=== PATIENT | female | born 1960 | race Caucasian/White ===

== ENCOUNTER 2022-05-16 10:01 | Outpatient (CLI) | payer BC | END 2022-05-16 10:02 | disposition home or self-care (01) | LOC: LABBT 10:01 | PROVIDERS: ATTEND Surgery | DX: K44.9 Diaphragmatic hernia without obstruction or gangrene (principal); K21.9 Gastro-esophageal reflux disease without esophagitis; Z20.822 Contact with and (suspected) exposure to COVID-19 | CPT/HCPCS: 87811 ==

== ENCOUNTER 2022-05-19 09:21 | Outpatient (CLI) | payer BC | END 2022-05-19 09:22 | disposition home or self-care (01) | LOC: RAD 09:21 | PROVIDERS: ATTEND Surgery | DX: K21.9 Gastro-esophageal reflux disease without esophagitis (principal); K44.9 Diaphragmatic hernia without obstruction or gangrene | CPT/HCPCS: 74246 ==

== ENCOUNTER 2022-06-29 12:18 | Outpatient (CLI) | payer BC | END 2022-06-29 12:19 | disposition home or self-care (01) | LOC: LABBT 12:18 | PROVIDERS: ATTEND Surgery | DX: Z20.822 Contact with and (suspected) exposure to COVID-19 (principal) | CPT/HCPCS: 87811 ==

== ENCOUNTER 2022-07-05 07:57 | Inpatient (IN) | payer BC ==
[2022-07-05 09:00] LABS: #Eosinphils 0.1 thou/uL (0.0-0.7); #Lymphocytes 1.6 thou/uL (1.20-3.40); #Monocytes 1.4 thou/uL (0.11-0.59); #Neutrophils 11.9 thou/uL (1.40-6.50); %Basophils 0.2 % (0.0-1.0); %Eosinophils 0.8 % (0.0-10.0); %Lymphocytes 10.5 % (21.0-51.0); %Monocytes 9.3 % (0.0-10.0); %Neutrophils 79.1 % (42.0-75.0); Hemoglobin 10.2 g/dL (12.0-16.0); Mean Corpuscular HGB CONC 33.6 g/dL (32.0-36.0); Mean Platelet Volume 8.7 fL (7.4-10.4); Platelet Count 120 thou/uL (130-400); RBC Distribution Width 13.3 % (11.5-14.5); Red Blood Cell (RBC) Count 2.75 mill/uL (4.20-5.40)
[2022-07-05 09:11] LABS: INR-International Normal Ratio 1.3; Prothrombin Time 15.9 sec (12.0-14.7)
[2022-07-05 09:12] LABS: PTT 33.8 sec (22.9-36.1)
[2022-07-05] MEDS ORDERED: Ondansetron PF 4 MG/2 ML Vial ONE (09:12)
[2022-07-05] MEDS ORDERED: Cefepime 2 GM VIAL ONE (09:12)
[2022-07-05 09:22] LABS: ALT (SGPT) 412 U/L (8-55); AST (SGOT) 226 U/L (5-34); Albumin 3.2 g/dL (3.4-4.8); Alkaline Phosphatase 54 U/L (40-110); Anion Gap 12 mmol/L (10-20); BUN (Urea Nitrogen) 13 mg/dL (9.8-20.1); CK (CPK) 315 U/L (29-168); Calc. Creatinine Clearance 0 mL/min (70-130); Calcium 8.4 mg/dL (7.8-10.44); Carbon Dioxide 23 mmol/L (23-31); Chloride 106 mmol/L (98-107); Estimated GFR 94; Globulin 2.2 g/dL (2.4-3.5); Glucose 106 mg/dL (80-115); Lipase 5 U/L (8-78); Potassium 3.6 mmol/L (3.5-5.1); Protein, Total 5.4 g/dL (5.8-8.1); Sodium 137 mmol/L (136-145)
[2022-07-05] MEDS ORDERED: VANCOMYCIN 1.75 GM/500 ML BAG 1.75 GM in Premix Bag 1 BAG IVPB SCH (11:00)
[2022-07-05] MEDS ORDERED: Fentanyl 100 MCG/2 ML VIAL ONE (13:20)
[2022-07-05] MEDS ORDERED: hydrALAZINE 20 MG/ML VIAL SLOW IVP PRN (13:35)
[2022-07-05] MEDS ORDERED: diphenhydrAMINE 50 MG/ML VIAL IVP PRN (13:35)
[2022-07-05] MEDS ORDERED: Dextrose 5% in Water 1,000 ML IV PRN (13:35)
[2022-07-05] MEDS ORDERED: Promethazine HCl 25 MG/ML VIAL IM PRN (13:35)
[2022-07-05] MEDS ORDERED: Dextrose 50% Abboject 50 ML SYRINGE SLOW IVP PRN (13:35)
[2022-07-05 14:00] LABS: SARS-CoV-2 NAA Rapid Test Not Detected (NotDetected)
[2022-07-05] MEDS ORDERED: GASTROGRAFIN 30 ML BOT ONE (14:51)
[2022-07-05] MEDS ORDERED: Iopamidol-370 76% 500 ML 1 ML ONE (14:51)
[2022-07-05] MEDS: D5 1/2 NS w/20 mEq KCL 1,000 ML IV SCH (15:38)
[2022-07-05] MEDS: Morphine 2 MG/ML VIAL SLOW IVP PRN ×2 (15:39→22:23)
[2022-07-05] MEDS: Ondansetron PF 4 MG/2 ML Vial IVP PRN (15:47)
[2022-07-05 16:04] VITALS: BMI 36.1
[2022-07-05] MEDS: HYDROcodone/Acetaminophen 5/325 mg Tablet PO PRN (17:44)
[2022-07-05] MEDS ORDERED: Polyethylene Glycol 3350 17 GM Packet PO PRN (19:24)
[2022-07-05] MEDS ORDERED: Piperacillin/Tazobactam 3.375 GM in Sodium Chloride 0.9% 100 ML IVPB SCH (20:00)
[2022-07-05] MEDS: Simethicone Chewable 80 MG TAB PO PRN (20:23)
[2022-07-05] MEDS: Flecainide 50 MG TAB PO SCH (20:33)
[2022-07-05] MEDS: tiZANidine HCl 4 MG TAB PO SCH (20:35)
[2022-07-05] MEDS: Zolpidem Tartrate 5 MG TAB PO SCH (20:35)
[2022-07-05] MEDS: Acetaminophen 500 MG TAB PO PRN (20:37)
[2022-07-05] MEDS ORDERED: Estradiol 0.1mg/24 Hour Patch (Weekly) TD SCH (21:00)
[2022-07-05] MEDS ORDERED: Cefepime 1 GM in Sodium Chloride 0.9% 100 ML IVPB SCH (21:00)
[2022-07-05] MEDS ORDERED: Vancomycin HCl 1.25 GM in Sodium Chloride 0.9% 250 ML 300 ML IVPB SCH (21:00)
[2022-07-05] MEDS ORDERED: Cefepime 2 GM in Sodium Chloride 0.9% 100 ML IVPB SCH (21:00)
[2022-07-06] MEDS: D5 1/2 NS w/20 mEq KCL 1,000 ML IV SCH ×4 (00:12→12:07)
[2022-07-06] MEDS: Piperacillin/Tazobactam 3.375 GM in Sodium Chloride 0.9% 100 ML IVPB SCH ×3 (00:13→16:03)
[2022-07-06] MEDS: Morphine 2 MG/ML VIAL SLOW IVP PRN ×4 (02:19→20:10)
[2022-07-06] MEDS: Ondansetron PF 4 MG/2 ML Vial IVP PRN ×2 (02:25→14:01)
[2022-07-06] MEDS: HYDROcodone/Acetaminophen 5/325 mg Tablet PO PRN ×3 (06:02→18:59)
[2022-07-06 07:18] LABS: Anion Gap 7 mmol/L (10-20); BUN (Urea Nitrogen) 6 mg/dL (9.8-20.1); Calc. Creatinine Clearance 121 mL/min (70-130); Calcium 7.8 mg/dL (7.8-10.44); Carbon Dioxide 24 mmol/L (23-31); Chloride 107 mmol/L (98-107); Estimated GFR 100; Glucose 127 mg/dL (80-115); Potassium 3.5 mmol/L (3.5-5.1); Sodium 134 mmol/L (136-145)
[2022-07-06 07:43] LABS: #Eosinphils 0.1 thou/uL (0.0-0.7); #Lymphocytes 1.5 thou/uL (1.20-3.40); #Monocytes 1.2 thou/uL (0.11-0.59); #Neutrophils 12.1 thou/uL (1.40-6.50); %Basophils 0.2 % (0.0-1.0); %Eosinophils 0.5 % (0.0-10.0); %Lymphocytes 10.1 % (21.0-51.0); %Monocytes 8.2 % (0.0-10.0); %Neutrophils 81.1 % (42.0-75.0); Mean Corpuscular HGB CONC 32.9 g/dL (32.0-36.0); Mean Corpuscular Hemoglobin 36.2 pg (27.0-31.0); Mean Platelet Volume 8.6 fL (7.4-10.4); Platelet Count 115 thou/uL (130-400); RBC Distribution Width 13.1 % (11.5-14.5); Red Blood Cell (RBC) Count 2.49 mill/uL (4.20-5.40); White Blood Cell (WBC) Count 14.9 thou/uL (4.8-10.8)
[2022-07-06] MEDS: Atenolol 25 MG TAB PO SCH (08:02)
[2022-07-06] MEDS: Flecainide 50 MG TAB PO SCH ×2 (08:03→20:16)
[2022-07-06] MEDS: Pantoprazole 40 MG VIAL IVP SCH (08:04)
[2022-07-06] MEDS: Acetaminophen 500 MG TAB PO PRN ×2 (08:05→16:01)
[2022-07-06] MEDS: Polyethylene Glycol 3350 17 GM Packet PO SCH (08:47)
[2022-07-06 08:50] LABS: Band 1 % (5-11); Lymphocytes 13 % (21-51); MDiff Complete? YES; Monocytes 4 % (0-10); Neutrophil 81 % (42-75); Platelet Morphology Comment Appears Decreased; Polychromasia SLIGHT = 2-3 cells (100X) (0-2/hpf)
[2022-07-06] MEDS ORDERED: Enoxaparin Sodium 40 MG/0.4 ML SYRINGE SC SCH (09:00)
[2022-07-06 13:38] LABS: #Eosinphils 0.1 thou/uL (0.0-0.7); #Lymphocytes 1.6 thou/uL (1.20-3.40); #Monocytes 1.1 thou/uL (0.11-0.59); #Neutrophils 12.4 thou/uL (1.40-6.50); %Basophils 0.2 % (0.0-1.0); %Eosinophils 0.4 % (0.0-10.0); %Lymphocytes 10.3 % (21.0-51.0); %Monocytes 7.5 % (0.0-10.0); %Neutrophils 81.6 % (42.0-75.0); Hemoglobin 9.4 g/dL (12.0-16.0); Mean Corpuscular HGB CONC 32.5 g/dL (32.0-36.0); Mean Corpuscular Hemoglobin 35.6 pg (27.0-31.0); Mean Platelet Volume 8.6 fL (7.4-10.4); Platelet Count 127 thou/uL (130-400); RBC Distribution Width 13.1 % (11.5-14.5); Red Blood Cell (RBC) Count 2.65 mill/uL (4.20-5.40); White Blood Cell (WBC) Count 15.2 thou/uL (4.8-10.8)
[2022-07-06] MEDS: guaiFENesin 200 MG TAB PO PRN (14:01)
[2022-07-06] MEDS: Simethicone Chewable 80 MG TAB PO PRN (20:12)
[2022-07-06] MEDS: Apixaban 2.5 MG TAB PO SCH (20:17)
[2022-07-06] MEDS: Clopidogrel Bisulfate 75 MG TAB PO SCH (20:17)
[2022-07-06] MEDS: tiZANidine HCl 4 MG TAB PO SCH (20:17)
[2022-07-06] MEDS: Zolpidem Tartrate 5 MG TAB PO SCH (20:18)
[2022-07-06] MEDS: Lisinopril 2.5 MG TAB PO SCH (20:33)
[2022-07-06] MEDS ORDERED: Lisinopril 10 MG TAB PO SCH (21:00)
[2022-07-07] MEDS: D5 1/2 NS w/20 mEq KCL 1,000 ML IV SCH ×3 (01:08→13:56)
[2022-07-07] MEDS: Piperacillin/Tazobactam 3.375 GM in Sodium Chloride 0.9% 100 ML IVPB SCH ×3 (01:08→17:28)
[2022-07-07] MEDS: Acetaminophen 500 MG TAB PO PRN ×2 (01:10→23:21)
[2022-07-07] MEDS: guaiFENesin 200 MG TAB PO PRN (01:12)
[2022-07-07] MEDS: Morphine 2 MG/ML VIAL SLOW IVP PRN ×5 (04:02→22:15)
[2022-07-07 06:02] LABS: Anion Gap 11 mmol/L (10-20); BUN (Urea Nitrogen) 6 mg/dL (9.8-20.1); Calc. Creatinine Clearance 117 mL/min (70-130); Calcium 8.2 mg/dL (7.8-10.44); Carbon Dioxide 21 mmol/L (23-31); Chloride 108 mmol/L (98-107); Estimated GFR 99; Glucose 120 mg/dL (80-115); Potassium 3.7 mmol/L (3.5-5.1); Sodium 136 mmol/L (136-145)
[2022-07-07] MEDS: Atenolol 25 MG TAB PO SCH (09:30)
[2022-07-07] MEDS: Flecainide 50 MG TAB PO SCH ×2 (09:30→19:40)
[2022-07-07] MEDS: Apixaban 2.5 MG TAB PO SCH ×2 (09:30→19:40)
[2022-07-07] MEDS: Polyethylene Glycol 3350 17 GM Packet PO SCH (09:31)
[2022-07-07] MEDS: Pantoprazole 40 MG VIAL IVP SCH (09:31)
[2022-07-07] MEDS: HYDROcodone/Acetaminophen 5/325 mg Tablet PO PRN ×3 (09:33→19:28)
[2022-07-07 13:52] LABS: #Basophils 0.1 thou/uL (0.0-0.2); #Eosinphils 0.2 thou/uL (0.0-0.7); #Lymphocytes 1.7 thou/uL (1.20-3.40); #Monocytes 1.1 thou/uL (0.11-0.59); %Basophils 0.4 % (0.0-1.0); %Eosinophils 1.1 % (0.0-10.0); %Lymphocytes 11.9 % (21.0-51.0); %Monocytes 8.1 % (0.0-10.0); %Neutrophils 78.6 % (42.0-75.0); Hemoglobin 9.2 g/dL (12.0-16.0); Mean Corpuscular HGB CONC 33.2 g/dL (32.0-36.0); Mean Corpuscular Hemoglobin 36.3 pg (27.0-31.0); Mean Platelet Volume 8.1 fL (7.4-10.4); Platelet Count 167 thou/uL (130-400); RBC Distribution Width 13.1 % (11.5-14.5); Red Blood Cell (RBC) Count 2.52 mill/uL (4.20-5.40)
[2022-07-07 14:09] LABS: Anion Gap 9 mmol/L (10-20); BUN (Urea Nitrogen) 5 mg/dL (9.8-20.1); Calc. Creatinine Clearance 123 mL/min (70-130); Calcium 8.2 mg/dL (7.8-10.44); Carbon Dioxide 23 mmol/L (23-31); Chloride 107 mmol/L (98-107); Estimated GFR 100; Glucose 105 mg/dL (80-115); Potassium 3.6 mmol/L (3.5-5.1); Sodium 135 mmol/L (136-145)
[2022-07-07] MEDS: Ondansetron PF 4 MG/2 ML Vial IVP PRN (17:28)
[2022-07-07] MEDS: Simethicone Chewable 80 MG TAB PO PRN (17:38)
[2022-07-07] MEDS: Lorazepam 1 MG TAB PO PRN (19:30)
[2022-07-07] MEDS: Lisinopril 2.5 MG TAB PO SCH (19:39)
[2022-07-07] MEDS: tiZANidine HCl 4 MG TAB PO SCH (19:39)
[2022-07-07] MEDS: Zolpidem Tartrate 5 MG TAB PO SCH (19:40)
[2022-07-07] MEDS: Clopidogrel Bisulfate 75 MG TAB PO SCH (19:41)
[2022-07-08] MEDS: HYDROcodone/Acetaminophen 5/325 mg Tablet PO PRN (00:42)
[2022-07-08] MEDS: Piperacillin/Tazobactam 3.375 GM in Sodium Chloride 0.9% 100 ML IVPB SCH ×3 (00:42→18:01)
[2022-07-08] MEDS: Morphine 2 MG/ML VIAL SLOW IVP PRN ×5 (01:40→18:00)
[2022-07-08] MEDS: Lorazepam 1 MG TAB PO PRN ×2 (01:41→18:08)
[2022-07-08] MEDS ORDERED: Diphenoxylate HCl/Atropine Tablet PO PRN (03:11)
[2022-07-08 07:58] LABS: #Eosinphils 0.2 thou/uL (0.0-0.7); #Lymphocytes 1.3 thou/uL (1.20-3.40); #Monocytes 0.9 thou/uL (0.11-0.59); #Neutrophils 9.2 thou/uL (1.40-6.50); %Basophils 0.2 % (0.0-1.0); %Eosinophils 1.7 % (0.0-10.0); %Lymphocytes 11.2 % (21.0-51.0); %Monocytes 7.9 % (0.0-10.0); Hemoglobin 8.6 g/dL (12.0-16.0); Mean Corpuscular HGB CONC 32.2 g/dL (32.0-36.0); Mean Corpuscular Hemoglobin 35.4 pg (27.0-31.0); Mean Platelet Volume 8.6 fL (7.4-10.4); Platelet Count 186 thou/uL (130-400); RBC Distribution Width 13.1 % (11.5-14.5); Red Blood Cell (RBC) Count 2.44 mill/uL (4.20-5.40); White Blood Cell (WBC) Count 11.7 thou/uL (4.8-10.8)
[2022-07-08] MEDS: Pantoprazole 40 MG VIAL IVP SCH (08:22)
[2022-07-08] MEDS: Atenolol 25 MG TAB PO SCH (08:22)
[2022-07-08] MEDS: Flecainide 50 MG TAB PO SCH ×2 (08:22→20:43)
[2022-07-08] MEDS: Polyethylene Glycol 3350 17 GM Packet PO SCH (08:23)
[2022-07-08] MEDS: D5 1/2 NS w/20 mEq KCL 1,000 ML IV SCH (08:24)
[2022-07-08] MEDS: Apixaban 2.5 MG TAB PO SCH ×2 (08:26→20:44)
[2022-07-08] MEDS: Ondansetron PF 4 MG/2 ML Vial IVP PRN ×2 (12:47→19:50)
[2022-07-08 15:25] LABS: Bacteria/HPF None Seen HPF (None Seen); Bilirubin Negative (Negative); Blood, Urine Negative (Negative); Glucose, Urine (Dipstick) Normal (Negative); Ketone, Urine 10 mg/dL (Negative); Leukocyte Negative Leu/uL (Negative); Nitrite Negative (Negative); Protein, Urine (Dipstick) Negative (Neg-Trace); RBC/HPF 0-3 HPF (0-3); Specific Gravity, Urine 1.017 (1.002-1.036); Squamous Epithelial 0-3 HPF (0-3); Urobilinogen Normal mg/dL (Less than 2); WBC/HPF 0-3 HPF (0-3); pH, Urine 5.5 (5.0-9.0)
[2022-07-08 15:26] LABS: Clarity Clear (Clear)
[2022-07-08 15:27] LABS: Urine Culture Reflex No No
[2022-07-08] MEDS: Simethicone Chewable 80 MG TAB PO PRN (18:00)
[2022-07-08] MEDS: Lisinopril 2.5 MG TAB PO SCH (20:41)
[2022-07-08] MEDS: Zolpidem Tartrate 5 MG TAB PO SCH (20:42)
[2022-07-08] MEDS: tiZANidine HCl 4 MG TAB PO SCH (20:42)
[2022-07-08] MEDS: Clopidogrel Bisulfate 75 MG TAB PO SCH (20:42)
[2022-07-09] MEDS ORDERED: Morphine 2 MG/ML VIAL SLOW IVP PRN (01:18)
[2022-07-09] MEDS: Piperacillin/Tazobactam 3.375 GM in Sodium Chloride 0.9% 100 ML IVPB SCH ×3 (01:55→18:15)
[2022-07-09] MEDS: Promethazine HCl 12.5 MG in Sodium Chloride 0.9% 50 ML IVPB PRN (02:04)
[2022-07-09] MEDS: D5 1/2 NS w/20 mEq KCL 1,000 ML IV SCH ×2 (05:35→22:58)
[2022-07-09] MEDS: Acetaminophen 500 MG TAB PO PRN ×2 (06:15→20:07)
[2022-07-09] MEDS: Ondansetron PF 4 MG/2 ML Vial IVP PRN ×3 (06:15→19:56)
[2022-07-09] MEDS: Lorazepam 1 MG TAB PO PRN ×2 (06:24→13:36)
[2022-07-09] MEDS: Atenolol 25 MG TAB PO SCH (08:22)
[2022-07-09] MEDS: Apixaban 2.5 MG TAB PO SCH ×2 (08:22→19:53)
[2022-07-09] MEDS: Flecainide 50 MG TAB PO SCH ×2 (08:22→20:06)
[2022-07-09] MEDS: HYDROcodone/Acetaminophen 5/325 mg Tablet PO PRN (08:23)
[2022-07-09] MEDS: Pantoprazole 40 MG VIAL IVP SCH (08:23)
[2022-07-09] MEDS: Saccharomyces boulardii 250 MG CAP PO SCH (08:23)
[2022-07-09] MEDS: Morphine 2 MG/ML VIAL SLOW IVP PRN ×2 (13:32→19:54)
[2022-07-09 15:35] LABS: Campy jejuni + coli by PCR Negative (Negative); STEC Shiga Toxin 1+2 Negative (Negative); Salmonella spp. by PCR Negative (Negative); Shigella spp + EIEC by PCR Negative (Negative)
[2022-07-09] MEDS: Clopidogrel Bisulfate 75 MG TAB PO SCH (19:53)
[2022-07-09] MEDS: Simethicone Chewable 80 MG TAB PO PRN (19:54)
[2022-07-09] MEDS: Lisinopril 2.5 MG TAB PO SCH (19:56)
[2022-07-09] MEDS: tiZANidine HCl 4 MG TAB PO SCH (20:07)
[2022-07-09] MEDS: Zolpidem Tartrate 5 MG TAB PO SCH (20:08)
[2022-07-10] MEDS: Piperacillin/Tazobactam 3.375 GM in Sodium Chloride 0.9% 100 ML IVPB SCH ×3 (00:19→17:51)
[2022-07-10] MEDS: HYDROcodone/Acetaminophen 5/325 mg Tablet PO PRN ×4 (02:11→20:51)
[2022-07-10] MEDS: Lorazepam 1 MG TAB PO PRN ×2 (02:12→16:08)
[2022-07-10] MEDS: Flecainide 50 MG TAB PO SCH ×2 (08:04→20:46)
[2022-07-10] MEDS: Saccharomyces boulardii 250 MG CAP PO SCH (08:04)
[2022-07-10] MEDS: Apixaban 2.5 MG TAB PO SCH ×2 (08:05→20:45)
[2022-07-10] MEDS: Atenolol 25 MG TAB PO SCH (08:05)
[2022-07-10] MEDS: Pantoprazole 40 MG VIAL IVP SCH (08:06)
[2022-07-10] MEDS: Ondansetron PF 4 MG/2 ML Vial IVP PRN ×2 (08:28→20:52)
[2022-07-10] MEDS: Simethicone Chewable 80 MG TAB PO PRN ×2 (13:37→20:44)
[2022-07-10] MEDS: Promethazine HCl 12.5 MG in Sodium Chloride 0.9% 50 ML IVPB PRN (13:37)
[2022-07-10] MEDS: Clopidogrel Bisulfate 75 MG TAB PO SCH (20:46)
[2022-07-10] MEDS: tiZANidine HCl 4 MG TAB PO SCH (20:48)
[2022-07-10] MEDS: Zolpidem Tartrate 5 MG TAB PO SCH (20:49)
[2022-07-10] MEDS: Lisinopril 2.5 MG TAB PO SCH (20:50)
[2022-07-10] MEDS: D5 1/2 NS w/20 mEq KCL 1,000 ML IV SCH (21:05)
[2022-07-11] MEDS: Piperacillin/Tazobactam 3.375 GM in Sodium Chloride 0.9% 100 ML IVPB SCH ×2 (01:56→08:24)
[2022-07-11] MEDS: HYDROcodone/Acetaminophen 5/325 mg Tablet PO PRN ×3 (02:13→15:19)
[2022-07-11] MEDS: Promethazine HCl 12.5 MG in Sodium Chloride 0.9% 50 ML IVPB PRN ×2 (03:35→12:46)
[2022-07-11] MEDS: Simethicone Chewable 80 MG TAB PO PRN ×2 (04:02→11:03)
[2022-07-11] MEDS: Atenolol 25 MG TAB PO SCH (08:25)
[2022-07-11] MEDS: Flecainide 50 MG TAB PO SCH (08:25)
[2022-07-11] MEDS: Apixaban 2.5 MG TAB PO SCH (08:25)
[2022-07-11] MEDS: Saccharomyces boulardii 250 MG CAP PO SCH (08:25)
[2022-07-11] MEDS: Pantoprazole 40 MG VIAL IVP SCH (08:25)
[2022-07-11] MEDS: Ondansetron PF 4 MG/2 ML Vial IVP PRN (11:03)
[2022-07-11 15:24] VITALS: BP 136/78; TEMP 99.8
== END 2022-07-11 16:23 | disposition home or self-care (01) | DRG 194 ==
LOC: ERS 07:57 → T4-A 14:32 → OBSVTOIN 07-07 16:46
PROVIDERS: ADMIT Surgery; ATTEND Surgery
DX: J18.9 Pneumonia, unspecified organism (principal); F11.20 Opioid dependence, uncomplicated; I50.32 Chronic diastolic (congestive) heart failure; Z20.822 Contact with and (suspected) exposure to COVID-19; K21.9 Gastro-esophageal reflux disease without esophagitis; I25.10 Atherosclerotic heart disease of native coronary artery without angina pectoris; I48.91 Unspecified atrial fibrillation; D64.9 Anemia, unspecified; E78.5 Hyperlipidemia, unspecified; Y95 Nosocomial condition; K59.00 Constipation, unspecified; I11.0 Hypertensive heart disease with heart failure; F41.9 Anxiety disorder, unspecified; Z95.1 Presence of aortocoronary bypass graft; Z95.5 Presence of coronary angioplasty implant and graft; Z98.890 Other specified postprocedural states; Z88.8 Allergy status to other drugs, medicaments and biological substances; Z90.49 Acquired absence of other specified parts of digestive tract; Z88.1 Allergy status to other antibiotic agents
CPT/HCPCS: 36415; 71045; 71275; 74177; 80048; 80053; 81001; 82550; 83605; 83630; 83690; 84484; 85025; 85610; 85730; 87040; 87324; 87449; 87505; 88304; 93005; 94640; 94760; 96361; 96365; 96366; 96367; 96372; 96375; 96376; C1776; C9113; G0378; J0690; J0692; J1100; J1170; J1200; J1650; J1885; J2270; J2370; J2405; J2543; J2550; J2704; J3010; J3370; J3480; J3490; J7620; Q9963; Q9967; U0002

== ENCOUNTER 2022-09-08 07:29 | Outpatient (CLI) | payer BC | END 2022-09-08 07:30 | disposition home or self-care (01) | LOC: RAD 07:29 | PROVIDERS: ATTEND Surgery | DX: K44.9 Diaphragmatic hernia without obstruction or gangrene (principal); K22.4 Dyskinesia of esophagus | CPT/HCPCS: 74246 ==

== ENCOUNTER 2024-03-23 07:51 | Observation (INO) | payer MEDICARE, OTHER ==
[2024-03-23 09:04] LABS: #Basophils 0.04 10x3/uL (0.0-0.2); %Basophils 0.7 % (0.0-1.0); %Eosinophils 2.2 % (0.0-10.0); %Lymphocytes 35.5 % (21.0-51.0); %Monocytes 10.1 % (0.0-10.0); %Neutrophils 51.1 % (42.0-75.0); Hematocrit 31.7 % (36.0-47.0); Hemoglobin 10.8 g/dL (12.0-16.0); Mean Corpuscular HGB CONC 34.1 g/dL (32.0-36.0); Mean Corpuscular Hemoglobin 37.5 pg (27.0-31.0); Mean Corpuscular Volume 110.1 fL (78.0-98.0); Mean Platelet Volume 9.3 fL (7.4-10.4); Platelet Count 213 10x3/uL (130-400); Red Blood Cell (RBC) Count 2.88 mill/uL (4.20-5.40)
[2024-03-23 09:16] LABS: Troponin I Less than 0.010 ng/mL (< 0.028)
[2024-03-23] MEDS ORDERED: Aspirin Chewable 81 MG TAB ONE (09:24)
[2024-03-23 09:25] LABS: ALT (SGPT) 32 U/L (8-55); AST (SGOT) 20 U/L (5-34); Albumin 3.6 g/dL (3.4-4.8); Alkaline Phosphatase 53 U/L (40-110); Anion Gap 12 mmol/L (10-20); BUN (Urea Nitrogen) 20 mg/dL (9.8-20.1); Bilirubin, Total 0.3 mg/dL (0.2-1.2); Calc. Creatinine Clearance 0 mL/min (70-130); Calcium 9.2 mg/dL (7.8-10.44); Carbon Dioxide 25 mmol/L (23-31); Chloride 108 mmol/L (98-107); Estimated GFR 87; Globulin 2.4 g/dL (2.4-3.5); Glucose 115 mg/dL (80-115); Potassium 4.2 mmol/L (3.5-5.1); Sodium 141 mmol/L (136-145)
[2024-03-23 09:44] LABS: Anisocytosis SLIGHT = 6-15 cells HPF (0-5); Macrocytosis SLIGHT = 6-15 cells HPF (0-5); Platelet Adequacy Comment Platelets Normal
[2024-03-23] MEDS ORDERED: Ondansetron PF 4 MG/2 ML Vial ONE (10:48)
[2024-03-23] MEDS ORDERED: fentaNYL 50 mcg/mL 1 mL Vial ONE (10:48)
[2024-03-23] MEDS ORDERED: Polyethylene Glycol 3350 17 GM Packet PO PRN (11:05)
[2024-03-23] MEDS ORDERED: Ondansetron PF 4 MG/2 ML Vial IVP PRN (11:14)
[2024-03-23] MEDS ORDERED: Acetaminophen 325 MG TAB PO PRN (11:14)
[2024-03-23] MEDS ORDERED: Ondansetron ODT 4 MG TAB PO PRN (11:14)
[2024-03-23 12:12] LABS: Troponin I Less than 0.010 ng/mL (< 0.028)
[2024-03-23 13:06] VITALS: BMI 32.0
[2024-03-23] MEDS: Lorazepam 0.5 MG TAB PO PRN (14:32)
[2024-03-23] MEDS: Nitroglycerin 0.4 MG TAB (25 Tab Bottle) SL PRN (15:44)
[2024-03-23] MEDS: Carvedilol 3.125 MG TAB PO SCH (17:52)
[2024-03-23] MEDS: Sodium Chloride 0.9% 1,000 ML IV SCH (18:48)
[2024-03-23 19:19] LABS: Troponin I Less than 0.010 ng/mL (< 0.028)
[2024-03-23] MEDS: Sacubitril 24MG/Valsartan 26 MG TAB PO SCH (20:27)
[2024-03-23] MEDS: Ranolazine ER 500 MG TAB PO SCH (20:28)
[2024-03-23] MEDS: Pantoprazole DR 40 MG TAB PO SCH (20:28)
[2024-03-23] MEDS: Zolpidem Tartrate 5 MG TAB PO SCH (21:51)
[2024-03-23] MEDS: tiZANidine HCl 4 MG TAB PO PRN (22:56)
[2024-03-24] MEDS: Empagliflozin 10 MG TAB PO SCH (05:04)
[2024-03-24] MEDS ORDERED: Communication Order-Pharmacy FS SCH (06:00)
[2024-03-24] MEDS: Magnesium Oxide 400 MG TAB PO SCH (06:09)
[2024-03-24] MEDS ORDERED: Adenosine 6 mg (2 mL) VIAL ONE (07:01)
[2024-03-24] MEDS ORDERED: Heparin 10,000 UNITS/ 10 ML VIAL ONE (07:01)
[2024-03-24] MEDS ORDERED: Nitroglycerin 50 MG/250 ML BOT 0 ML ONE (07:02)
[2024-03-24] MEDS ORDERED: Midazolam HCl 2 mg/2 ml Vial ONE (07:55)
[2024-03-24] MEDS ORDERED: fentaNYL 50 mcg/mL 1 mL Vial ONE (07:55)
[2024-03-24] MEDS ORDERED: Nitroglycerin 0.4 MG TAB (25 Tab Bottle) ONE (09:57)
[2024-03-24] MEDS ORDERED: Acetaminophen 325 MG TAB ONE (10:37)
[2024-03-24] MEDS: Bumetanide 1 MG TAB PO SCH (13:47)
[2024-03-24] MEDS: Folic Acid 1 MG TAB PO SCH (13:48)
[2024-03-24] MEDS: Amiodarone 200 MG TAB PO SCH (13:48)
[2024-03-24] MEDS: Cyanocobalamin (Vitamin B-12) 1,000 MCG TAB PO SCH (13:48)
[2024-03-24] MEDS: Sodium Chloride 0.9% 1,000 ML IV SCH (13:48)
[2024-03-24 14:08] LABS: #Basophils 0.04 10x3/uL (0.0-0.2); %Basophils 0.6 % (0.0-1.0); %Eosinophils 1.8 % (0.0-10.0); %Lymphocytes 25.4 % (21.0-51.0); %Monocytes 8.9 % (0.0-10.0); %Neutrophils 63.1 % (42.0-75.0); Hematocrit 36.1 % (36.0-47.0); Hemoglobin 11.3 g/dL (12.0-16.0); Mean Corpuscular HGB CONC 31.3 g/dL (32.0-36.0); Mean Corpuscular Hemoglobin 37.7 pg (27.0-31.0); Mean Corpuscular Volume 120.3 fL (78.0-98.0); Mean Platelet Volume 9.4 fL (7.4-10.4); Platelet Count 221 10x3/uL (130-400); RBC Distribution Width 12.4 % (11.5-14.5)
[2024-03-24] MEDS: ALPRAZolam 0.25 MG TAB PO PRN (14:15)
[2024-03-24 14:26] LABS: Anion Gap 12 mmol/L (10-20); BUN (Urea Nitrogen) 12 mg/dL (9.8-20.1); Calc. Creatinine Clearance 113 mL/min (70-130); Calcium 8.5 mg/dL (7.8-10.44); Carbon Dioxide 20 mmol/L (23-31); Cardiac Risk 4.5 (Less than 4.5); Chloride 110 mmol/L (98-107); Cholesterol 204 mg/dl (< 200 Desired); Estimated GFR 99; Glucose 115 mg/dL (80-115); HDL Cholesterol 45 mg/dL (>60 Neg Risk); LDL Cholesterol, Calculated 140 mg/dL; Sodium 138 mmol/L (136-145); Triglycerides 94 mg/dL (Less than 150)
[2024-03-24] MEDS ORDERED: Iopamidol 370 76% 100 ML VIAL ONE (14:30)
[2024-03-24 14:36] LABS: Macrocytosis SLIGHT = 6-15 cells HPF (0-5); Ovalocytes SLIGHT = 2-5 cells HPF (0-1); Platelet Adequacy Comment Platelets Normal; Polychromasia SLIGHT = 2-3 cells HPF (0-2)
[2024-03-24 16:21] VITALS: BP 167/80; TEMP 97.8
[2024-03-24] MEDS ORDERED: Zolpidem Tartrate 5 MG TAB PO SCH (21:00)
[2024-03-25] MEDS ORDERED: Clopidogrel Bisulfate 75 MG TAB PO SCH (09:00)
[2024-03-25] MEDS ORDERED: Aspirin Chewable 81 MG TAB PO SCH (09:00)
== END 2024-03-24 17:52 | disposition home or self-care (01) ==
LOC: ERS 07:51 → ERHOLD 10:35 → 2SW 13:02
PROVIDERS: ADMIT Student in an Organized Health Care Education/Training Program; ATTEND Internal Medicine
PROC: 4A023N7 Measurement of Cardiac Sampling and Pressure, Left Heart, Percutaneous Approach (ICD-10-PCS; principal; 2024-03-23)
PROC: B205YZZ Plain Radiography of Left Heart using Other Contrast (ICD-10-PCS; 2024-03-23)
DX: R07.9 Chest pain, unspecified (principal); I25.10 Atherosclerotic heart disease of native coronary artery without angina pectoris; I48.91 Unspecified atrial fibrillation; I11.0 Hypertensive heart disease with heart failure; I50.20 Unspecified systolic (congestive) heart failure; E78.5 Hyperlipidemia, unspecified; D64.9 Anemia, unspecified; K44.9 Diaphragmatic hernia without obstruction or gangrene; F41.9 Anxiety disorder, unspecified; Z95.5 Presence of coronary angioplasty implant and graft; Z95.1 Presence of aortocoronary bypass graft; Z88.8 Allergy status to other drugs, medicaments and biological substances; Z88.1 Allergy status to other antibiotic agents; Z90.49 Acquired absence of other specified parts of digestive tract; Z90.89 Acquired absence of other organs; Z90.710 Acquired absence of both cervix and uterus; Z88.2 Allergy status to sulfonamides; Z79.51 Long term (current) use of inhaled steroids; Z79.899 Other long term (current) drug therapy; Z79.82 Long term (current) use of aspirin
CPT/HCPCS: 71045; 80048; 80053; 80061; 83735; 83880; 84484 ×2; 85025 ×2; 85347 ×2; 93005 ×2; 93459; 94760; 96374; 96375; 99285; C1769 ×3; C1887; C1894 ×2; G0378 ×3; J1644; J2250; J2405; J3010 ×2; J7050 ×2; 36415; 36416; 93799; 99152; 99153; J0153

== ENCOUNTER 2024-07-09 13:54 | Observation (INO) | payer MEDICARE, OTHER ==
[2024-07-09 15:22] LABS: ALT (SGPT) 25 U/L (8-55); AST (SGOT) 19 U/L (5-34); Albumin 3.4 g/dL (3.4-4.8); Alkaline Phosphatase 54 U/L (40-110); Anion Gap 12 mmol/L (10-20); BUN (Urea Nitrogen) 17 mg/dL (9.8-20.1); Bilirubin, Total 0.3 mg/dL (0.2-1.2); Calc. Creatinine Clearance 0 mL/min (70-130); Carbon Dioxide 23 mmol/L (23-31); Chloride 108 mmol/L (98-107); Estimated GFR 96; Globulin 3.1 g/dL (2.4-3.5); Glucose 81 mg/dL (80-115); Lipase 7 U/L (8-78); Potassium 4.6 mmol/L (3.5-5.1); Protein, Total 6.5 g/dL (5.8-8.1); Sodium 138 mmol/L (136-145)
[2024-07-09 15:23] LABS: #Basophils 0.07 10x3/uL (0.0-0.2); %Basophils 0.8 % (0.0-1.0); %Eosinophils 4.5 % (0.0-10.0); %Lymphocytes 25.4 % (21.0-51.0); %Monocytes 10.2 % (0.0-10.0); %Neutrophils 58.6 % (42.0-75.0); Hematocrit 40.2 % (36.0-47.0); Hemoglobin 12.9 g/dL (12.0-16.0); Mean Corpuscular HGB CONC 32.1 g/dL (32.0-36.0); Mean Corpuscular Hemoglobin 37.8 pg (27.0-31.0); Mean Corpuscular Volume 117.9 fL (78.0-98.0); Mean Platelet Volume 9.6 fL (7.4-10.4); Platelet Count 248 10x3/uL (130-400); RBC Distribution Width 13.1 % (11.5-14.5); Red Blood Cell (RBC) Count 3.41 mill/uL (4.20-5.40)
[2024-07-09 15:28] LABS: Troponin I Less than 0.010 ng/mL (< 0.028)
[2024-07-09 15:46] LABS: Macrocytosis SLIGHT = 6-15 cells HPF (0-5); Platelet Adequacy Comment Platelets Normal; Polychromasia SLIGHT = 2-3 cells HPF (0-2); Tear Drops SLIGHT = 2-5 cells HPF (0-1)
[2024-07-09] MEDS ORDERED: Nitroglycerin 0.4 MG TAB 1 EACH ONE (16:17)
[2024-07-09] MEDS ORDERED: Metoclopramide HCl 10 MG TAB ONE (16:17)
[2024-07-09] MEDS ORDERED: Acetaminophen 325 MG TAB PO PRN (16:51)
[2024-07-09] MEDS ORDERED: Ondansetron ODT 4 MG TAB PO PRN (16:51)
[2024-07-09 18:06] LABS: Cardiac Risk 4.9 (Less than 4.5); Cholesterol 222 mg/dl (< 200 Desired); HDL Cholesterol 45 mg/dL (>60 Neg Risk); LDL Cholesterol, Calculated 150 mg/dL; Magnesium 2.2 mg/dL (1.6-2.6); Triglycerides 135 mg/dL (Less than 150)
[2024-07-09 18:08] LABS: Troponin I Less than 0.010 ng/mL (< 0.028)
[2024-07-09] MEDS ORDERED: Lorazepam 1 MG TAB ONE (18:14)
[2024-07-09] MEDS: Nitroglycerin 0.4 MG TAB (25 Tab Bottle) SL PRN (18:17)
[2024-07-09] MEDS: Lorazepam 1 MG TAB PO SCH (18:17)
[2024-07-09 18:55] VITALS: BMI 29.8
[2024-07-09] MEDS: Famotidine 20 MG TAB PO SCH (21:39)
[2024-07-09] MEDS: Zolpidem Tartrate 5 MG TAB PO SCH (21:39)
[2024-07-09 21:47] LABS: Troponin I Less than 0.010 ng/mL (< 0.028)
[2024-07-10] MEDS: Lorazepam 0.5 MG TAB PO PRN (02:06)
[2024-07-10 05:15] LABS: #Basophils 0.06 10x3/uL (0.0-0.2); %Basophils 0.8 % (0.0-1.0); %Eosinophils 4.4 % (0.0-10.0); %Lymphocytes 29.9 % (21.0-51.0); %Monocytes 12.2 % (0.0-10.0); %Neutrophils 52.3 % (42.0-75.0); Hematocrit 36.2 % (36.0-47.0); Hemoglobin 11.9 g/dL (12.0-16.0); Mean Corpuscular HGB CONC 32.9 g/dL (32.0-36.0); Mean Corpuscular Hemoglobin 37.8 pg (27.0-31.0); Mean Corpuscular Volume 114.9 fL (78.0-98.0); Mean Platelet Volume 9.7 fL (7.4-10.4); Platelet Count 245 10x3/uL (130-400); RBC Distribution Width 12.9 % (11.5-14.5); Red Blood Cell (RBC) Count 3.15 mill/uL (4.20-5.40)
[2024-07-10 05:43] LABS: Macrocytosis SLIGHT = 6-15 cells HPF (0-5); Platelet Adequacy Comment Platelets Normal
[2024-07-10] MEDS ORDERED: Polyethylene Glycol 3350 17 GM Packet PO PRN (08:24)
[2024-07-10] MEDS ORDERED: Non-Formulary Item 1 EACH (Tizanidine Hcl [Zanaflex] 4 MG Capsule) PO PRN (08:24)
[2024-07-10] MEDS ORDERED: Non-Formulary Item 1 EACH (Fluticasone Propionate [Flonase Allergy Relief] 9.9 ML Bottle) EA NARE PRN (08:24)
[2024-07-10] MEDS ORDERED: Non-Formulary Item 1 EACH (Lidocaine 5% Patch [Lidoderm 5% Patch] 1 PATCH Patch) TD PRN (08:24)
[2024-07-10] MEDS ORDERED: Albuterol 200 PUFF (6.7GM INHALER) INH PRN (08:24)
[2024-07-10] MEDS ORDERED: BEMPEDOIC ACID 180 MG PO PRN (08:24)
[2024-07-10] MEDS ORDERED: Simethicone Chewable 80 MG TAB PO PRN (08:24)
[2024-07-10] MEDS ORDERED: Bempedoic Acid [Nexletol] 180 MG Tablet PO PRN (08:33)
[2024-07-10] MEDS ORDERED: Fluticasone Propionate Nasal Spray 16 gm Bottle NASAL PRN (08:34)
[2024-07-10] MEDS ORDERED: Lidocaine 4% Patch TP PRN (08:37)
[2024-07-10] MEDS ORDERED: Non-Formulary Item 1 EACH (Fluticasone/Umeclidin/Vilanter [Trelegy Ellipta 200-62.5-25] 1 INH SCH (09:00)
[2024-07-10] MEDS ORDERED: Bumetanide 1 MG TAB PO SCH (09:00)
[2024-07-10] MEDS ORDERED: Aspirin Chewable 81 MG TAB PO SCH (09:00)
[2024-07-10] MEDS ORDERED: Ranolazine ER 500 MG TAB PO SCH (09:00)
[2024-07-10] MEDS ORDERED: Non-Formulary Item 1 EACH (Valacyclovir Hcl [Valacyclovir] 1,000 MG Tablet) PO SCH (09:00)
[2024-07-10] MEDS ORDERED: Iopamidol 370 76% 100 ML VIAL ONE (09:29)
[2024-07-10] MEDS: valACYclovir 500 MG TAB PO SCH (10:08)
[2024-07-10] MEDS: Ketorolac Tromethamine 30 MG (1 mL) VIAL IVP PRN (10:09)
[2024-07-10] MEDS: Sacubitril 24MG/Valsartan 26 MG TAB PO SCH (10:10)
[2024-07-10] MEDS: Bumetanide 1 MG TAB PO SCH (10:11)
[2024-07-10] MEDS: Ranolazine ER 500 MG TAB PO SCH (10:12)
[2024-07-10] MEDS: Lorazepam 1 MG TAB PO PRN (10:12)
[2024-07-10] MEDS: Empagliflozin 10 MG TAB PO SCH (10:13)
[2024-07-10] MEDS: Pantoprazole DR 40 MG TAB PO SCH (10:13)
[2024-07-10] MEDS: Folic Acid 1 MG TAB PO SCH (10:13)
[2024-07-10] MEDS: Enoxaparin 40 MG (0.4 mL) SYRINGE SC SCH (10:13)
[2024-07-10] MEDS: Ipratropium/Albuterol 3 ML NEB NEB SCH (13:46)
[2024-07-10] MEDS: Cyanocobalamin 1000 MCG/ML VIAL SC SCH (13:48)
[2024-07-10] MEDS: Estradiol 0.01% Vaginal Cream 42.5 gm Tube VAG SCH (13:51)
[2024-07-10] MEDS: ALPRAZolam 0.25 MG TAB PO PRN (13:56)
[2024-07-10] MEDS: Mometasone 100 MCG HFA INHALER (RT USE) INH SCH (19:33)
[2024-07-10] MEDS: Sertraline 100 MG TAB PO SCH (20:58)
[2024-07-10] MEDS: Amiodarone 200 MG TAB PO SCH (21:00)
[2024-07-10] MEDS: Aspirin 81 mg Enteric Coated Tablet PO SCH (21:00)
[2024-07-10] MEDS: Zolpidem Tartrate 5 MG TAB PO SCH (21:00)
[2024-07-10] MEDS: tiZANidine HCl 4 MG TAB PO PRN (21:00)
[2024-07-10] MEDS: Amitriptyline HCl 25 MG TAB PO SCH (21:01)
[2024-07-10] MEDS: Transdermal Patch Removal TOP SCH (21:01)
[2024-07-11] MEDS ORDERED: tiZANidine HCl 4 MG TAB PO PRN (03:56)
[2024-07-11] MEDS: tiZANidine HCl 4 MG TAB PO SCH (04:45)
[2024-07-11] MEDS ORDERED: Estradiol 0.01% Vaginal Cream 42.5 gm Tube VAG SCH (09:00)
[2024-07-11] MEDS: Ketorolac Tromethamine 30 MG (1 mL) VIAL IVP SCH (10:00)
[2024-07-11 12:20] VITALS: BP 110/53; TEMP 97.8
== END 2024-07-11 12:20 | disposition home or self-care (01) ==
LOC: ERS 13:54 → ERHOLD 16:21 → 2SE 20:43
PROVIDERS: ADMIT Internal Medicine; ATTEND Internal Medicine
DX: R07.9 Chest pain, unspecified (principal); I11.0 Hypertensive heart disease with heart failure; I25.10 Atherosclerotic heart disease of native coronary artery without angina pectoris; I50.40 Unspecified combined systolic (congestive) and diastolic (congestive) heart failure; I48.91 Unspecified atrial fibrillation; F41.9 Anxiety disorder, unspecified; D64.9 Anemia, unspecified; K44.9 Diaphragmatic hernia without obstruction or gangrene; R00.2 Palpitations; E78.5 Hyperlipidemia, unspecified; Z95.1 Presence of aortocoronary bypass graft; Z90.710 Acquired absence of both cervix and uterus; Z90.49 Acquired absence of other specified parts of digestive tract; Z98.890 Other specified postprocedural states; Z95.5 Presence of coronary angioplasty implant and graft; Z79.899 Other long term (current) drug therapy; Z90.89 Acquired absence of other organs; Z94.9 Transplanted organ and tissue status, unspecified; Z88.8 Allergy status to other drugs, medicaments and biological substances; Z88.2 Allergy status to sulfonamides
CPT/HCPCS: 71045; 71275; 80053; 80061; 83690; 83735; 83880; 84484 ×2; 85025 ×2; 93005 ×2; 94760; 96372; 96374; 96376; 99285; G0378 ×4; J1885 ×2; J3420; Q9967; 36415; 93010

== ENCOUNTER 2024-07-18 05:55 | Day surgery (SDC) | payer MEDICARE, OTHER ==
[2024-07-11 13:41] VITALS: BMI 29.3
[2024-07-18] MEDS ORDERED: Bupivacaine PF 0.5% 30 ML VIAL ONE (06:33)
[2024-07-18] MEDS ORDERED: Thrombin 5000 UNITS/5 ML VIAL ONE (06:33)
[2024-07-18] MEDS ORDERED: EPINEPHrine 1 MG/ML VIAL ONE (06:33)
[2024-07-18] MEDS ORDERED: Famotidine/PF 20 mg/2ml Vial ONE (06:37)
[2024-07-18] MEDS ORDERED: CEFAZOLIN 2 GM VIAL ONE (06:43)
[2024-07-18] MEDS ORDERED: Midazolam HCl 2 mg/2 ml Vial ONE (06:51)
[2024-07-18] MEDS ORDERED: Droperidol 5 MG/2 ML VIAL ONE (06:54)
[2024-07-18] MEDS ORDERED: Norepinephrine 4 MG/4 ML VIAL ONE (07:07)
[2024-07-18] MEDS ORDERED: Lidocaine 2% PF 5 ML VIAL ONE (07:12)
[2024-07-18] MEDS ORDERED: PROPOFOL 20 ML ONE (07:12)
[2024-07-18] MEDS ORDERED: SUCCINYLCHOLINE/SOD CL,ISO/PF 200 MG/10 ML SYRINGE FS ONE (07:12)
[2024-07-18] MEDS ORDERED: fentaNYL 50 mcg/mL 1 mL Vial ONE ×3 (07:12→09:14)
[2024-07-18] MEDS ORDERED: Rocuronium Bromide 10 MG/ML (10ML VIAL) ONE (07:16)
[2024-07-18] MEDS ORDERED: SUGAMMADEX SODIUM 200 MG/2 ML VIAL ONE (08:03)
[2024-07-18] MEDS ORDERED: PHENYLEPHRINE-NS 100 MCG/ML 10 ML SYRINGE ONE (08:03)
[2024-07-18] MEDS ORDERED: Metoclopramide HCl 10 MG (2 mL) VIAL ONE (08:04)
[2024-07-18] MEDS ORDERED: Dexamethasone 4 mg/ml Vial ONE ×2 (08:04)
[2024-07-18] MEDS ORDERED: Ondansetron PF 4 MG/2 ML Vial ONE (08:04)
[2024-07-18] MEDS ORDERED: Ketorolac Tromethamine 30 MG/ML VIAL IVP PRN (08:14)
[2024-07-18] MEDS ORDERED: Promethazine HCl 25 MG/ML VIAL IM PRN (08:14)
[2024-07-18] MEDS ORDERED: Ondansetron HCl/PF 4 MG/2 ML Vial IVP PRN (08:14)
[2024-07-18] MEDS ORDERED: HYDROmorphone 2 MG/ML VIAL SLOW IVP PRN (08:14)
[2024-07-18] MEDS ORDERED: Cephalexin 250 MG CAP PO SCH (11:26)
== END 2024-07-18 12:09 | disposition home or self-care (01) ==
LOC: SDC 05:55
PROVIDERS: ATTEND Neurological Surgery
PROC: 01NB0ZZ Release Lumbar Nerve, Open Approach (ICD-10-PCS; principal; 2024-07-18)
DX: M54.16 Radiculopathy, lumbar region (principal); J45.909 Unspecified asthma, uncomplicated; I11.0 Hypertensive heart disease with heart failure; I50.9 Heart failure, unspecified; I25.10 Atherosclerotic heart disease of native coronary artery without angina pectoris; E03.9 Hypothyroidism, unspecified; Z95.1 Presence of aortocoronary bypass graft; Z95.5 Presence of coronary angioplasty implant and graft; Z79.82 Long term (current) use of aspirin; Z79.899 Other long term (current) drug therapy
CPT/HCPCS: 63047; 82962; J0171; J0665; J1100; J1790; J2250; J2405; J2704; J2765; J3010; J3490; 36416

== ENCOUNTER 2024-07-21 10:25 | Emergency (ER) | payer MEDICARE, OTHER ==
[2024-07-21 11:44] LABS: #Basophils 0.04 10x3/uL (0.0-0.2); %Basophils 0.5 % (0.0-1.0); %Monocytes 9.3 % (0.0-10.0); %Neutrophils 64.9 % (42.0-75.0); Hematocrit 36.6 % (36.0-47.0); Hemoglobin 12.5 g/dL (12.0-16.0); Mean Corpuscular HGB CONC 34.2 g/dL (32.0-36.0); Mean Corpuscular Hemoglobin 37.9 pg (27.0-31.0); Mean Corpuscular Volume 110.9 fL (78.0-98.0); Platelet Count 189 10x3/uL (130-400); RBC Distribution Width 13.5 % (11.5-14.5)
[2024-07-21 11:55] LABS: ALT (SGPT) 19 U/L (8-55); AST (SGOT) 16 U/L (5-34); Albumin 3.3 g/dL (3.4-4.8); Alkaline Phosphatase 55 U/L (40-110); Anion Gap 16 mmol/L (10-20); BUN (Urea Nitrogen) 17 mg/dL (9.8-20.1); Bilirubin, Total 0.4 mg/dL (0.2-1.2); Calc. Creatinine Clearance 0 mL/min (70-130); Calcium 8.8 mg/dL (7.8-10.44); Carbon Dioxide 17 mmol/L (23-31); Chloride 107 mmol/L (98-107); Estimated GFR 96; Glucose 82 mg/dL (80-115); Potassium 3.8 mmol/L (3.5-5.1); Protein, Total 6.3 g/dL (5.8-8.1); Sodium 136 mmol/L (136-145)
[2024-07-21] MEDS ORDERED: Acetaminophen 500 MG TAB ONE (11:56)
[2024-07-21] MEDS ORDERED: Metoclopramide HCl 10 MG (2 mL) VIAL ONE (11:57)
[2024-07-21] MEDS ORDERED: diphenhydrAMINE 50 MG/ML VIAL ONE (11:57)
== END 2024-07-21 13:34 | disposition home or self-care (01) ==
LOC: ERS 10:25
DX: M54.50 Low back pain, unspecified (principal); J00 Acute nasopharyngitis [common cold]; I25.10 Atherosclerotic heart disease of native coronary artery without angina pectoris; I11.0 Hypertensive heart disease with heart failure; I50.30 Unspecified diastolic (congestive) heart failure; I48.91 Unspecified atrial fibrillation; I25.2 Old myocardial infarction
CPT/HCPCS: 70450; 71045; 72131; 80053; 85025; 93005; J1200; J2765; 36415; 96374; 96375

== ENCOUNTER 2024-07-26 19:35 | Inpatient (IN) | payer MEDICARE, OTHER ==
[2024-07-26] MEDS ORDERED: Nitroglycerin 2% Ointment 1 INCH/1 GM Packet ONE (20:13)
[2024-07-26 21:04] LABS: ALT (SGPT) 17 U/L (8-55); AST (SGOT) 15 U/L (5-34); Albumin 3.6 g/dL (3.4-4.8); Alkaline Phosphatase 47 U/L (40-110); Anion Gap 17 mmol/L (10-20); BUN (Urea Nitrogen) 17 mg/dL (9.8-20.1); Bilirubin, Total 0.3 mg/dL (0.2-1.2); Calc. Creatinine Clearance 0 mL/min (70-130); Calcium 9.1 mg/dL (7.8-10.44); Carbon Dioxide 20 mmol/L (23-31); Chloride 106 mmol/L (98-107); Estimated GFR 89; Globulin 2.9 g/dL (2.4-3.5); Glucose 72 mg/dL (80-115); Lipase 11 U/L (8-78); Potassium 3.8 mmol/L (3.5-5.1); Protein, Total 6.5 g/dL (5.8-8.1); Sodium 139 mmol/L (136-145)
[2024-07-26 21:08] LABS: #Basophils 0.05 10x3/uL (0.0-0.2); %Basophils 0.7 % (0.0-1.0); %Eosinophils 3.5 % (0.0-10.0); %Lymphocytes 31.2 % (21.0-51.0); %Monocytes 12.4 % (0.0-10.0); %Neutrophils 51.8 % (42.0-75.0); Hemoglobin 12.5 g/dL (12.0-16.0); Mean Corpuscular HGB CONC 32.9 g/dL (32.0-36.0); Mean Corpuscular Hemoglobin 37.9 pg (27.0-31.0); Mean Corpuscular Volume 115.2 fL (78.0-98.0); Mean Platelet Volume 9.9 fL (7.4-10.4); Platelet Count 259 10x3/uL (130-400); RBC Distribution Width 13.9 % (11.5-14.5)
[2024-07-26 21:09] LABS: Troponin I Less than 0.010 ng/mL (< 0.028)
[2024-07-27] MEDS ORDERED: Acetaminophen 650 MG Suppository PR PRN
[2024-07-27] MEDS ORDERED: Ondansetron PF 4 MG/2 ML Vial IVP PRN
[2024-07-27] MEDS ORDERED: Morphine 4 MG/ML VIAL ONE (00:21)
[2024-07-27 01:20] LABS: Troponin I Less than 0.010 ng/mL (< 0.028)
[2024-07-27] MEDS: Lorazepam 1 MG TAB PO SCH (01:50)
[2024-07-27] MEDS: Acetaminophen 325 MG TAB PO SCH (02:17)
[2024-07-27 03:15] LABS: Troponin I Less than 0.010 ng/mL (< 0.028)
[2024-07-27] MEDS: Ipratropium/Albuterol 3 ML NEB NEB SCH (03:50)
[2024-07-27] MEDS: Mometasone 100 MCG HFA INHALER (RT USE) INH SCH (06:37)
[2024-07-27] MEDS: Famotidine/PF 20 mg/2ml Vial SLOW IVP SCH (08:35)
[2024-07-27] MEDS: Sacubitril 24MG/Valsartan 26 MG TAB PO SCH (08:35)
[2024-07-27] MEDS: Ranolazine ER 500 MG TAB PO SCH (08:35)
[2024-07-27 08:41] LABS: #Basophils 0.05 10x3/uL (0.0-0.2); %Basophils 0.9 % (0.0-1.0); %Eosinophils 4.4 % (0.0-10.0); %Lymphocytes 37.5 % (21.0-51.0); %Monocytes 13.1 % (0.0-10.0); %Neutrophils 43.7 % (42.0-75.0); Hematocrit 33.5 % (36.0-47.0); Hemoglobin 11.7 g/dL (12.0-16.0); Mean Corpuscular HGB CONC 34.9 g/dL (32.0-36.0); Mean Corpuscular Hemoglobin 37.7 pg (27.0-31.0); Mean Corpuscular Volume 108.1 fL (78.0-98.0); Mean Platelet Volume 11.7 fL (7.4-10.4); Platelet Count 215 10x3/uL (130-400); RBC Distribution Width 13.9 % (11.5-14.5)
[2024-07-27] MEDS: Famotidine 20 MG TAB PO SCH (08:44)
[2024-07-27] MEDS ORDERED: Non-Formulary Item 1 EACH (Fluticasone/Umeclidin/Vilanter [Trelegy Ellipta 200-62.5-25] 1 INH SCH (09:00)
[2024-07-27 12:06] LABS: Chloride 108 mmol/L (98-107); Potassium 3.8 mmol/L (3.5-5.1); Sodium 140 mmol/L (136-145)
[2024-07-27 12:07] LABS: Calcium 8.8 mg/dL (7.8-10.44); Glucose 77 mg/dL (80-115)
[2024-07-27 12:09] LABS: Anion Gap 17 mmol/L (10-20); Carbon Dioxide 19 mmol/L (23-31)
[2024-07-27 12:11] LABS: BUN (Urea Nitrogen) 12 mg/dL (9.8-20.1); Calc. Creatinine Clearance 102 mL/min (70-130); Estimated GFR 99
[2024-07-27] MEDS ORDERED: Ipratropium/Albuterol 3 ML NEB NEB PRN (14:16)
[2024-07-27] MEDS: Lorazepam 1 MG TAB PO PRN (15:25)
[2024-07-27] MEDS: Sodium Chloride 0.9% 1,000 ML IV SCH (15:25)
[2024-07-27] MEDS ORDERED: tiZANidine HCl 4 MG TAB PO PRN (16:50)
[2024-07-27] MEDS: Metoprolol Tartrate 25 MG TAB PO SCH (17:15)
[2024-07-27] MEDS: Zolpidem Tartrate 5 MG TAB PO SCH (20:08)
[2024-07-27] MEDS: Aspirin 81 mg Enteric Coated Tablet PO SCH (20:08)
[2024-07-27] MEDS: Sertraline 100 MG TAB PO SCH (20:08)
[2024-07-28 03:41] VITALS: BMI 29.1
[2024-07-28 06:30] LABS: #Basophils 0.06 10x3/uL (0.0-0.2); %Basophils 1.1 % (0.0-1.0); %Eosinophils 4.2 % (0.0-10.0); %Lymphocytes 33.2 % (21.0-51.0); %Monocytes 13.7 % (0.0-10.0); %Neutrophils 47.3 % (42.0-75.0); Hematocrit 36.4 % (36.0-47.0); Hemoglobin 12.2 g/dL (12.0-16.0); Mean Corpuscular HGB CONC 33.5 g/dL (32.0-36.0); Mean Corpuscular Volume 113.4 fL (78.0-98.0); Mean Platelet Volume 10.9 fL (7.4-10.4); Platelet Count 255 10x3/uL (130-400); RBC Distribution Width 13.6 % (11.5-14.5); Red Blood Cell (RBC) Count 3.21 mill/uL (4.20-5.40)
[2024-07-28 06:32] LABS: Anion Gap 16 mmol/L (10-20); BUN (Urea Nitrogen) 9 mg/dL (9.8-20.1); Calc. Creatinine Clearance 94 mL/min (70-130); Calcium 8.8 mg/dL (7.8-10.44); Carbon Dioxide 19 mmol/L (23-31); Chloride 108 mmol/L (98-107); Estimated GFR 97; Glucose 70 mg/dL (80-115); Potassium 3.5 mmol/L (3.5-5.1); Sodium 139 mmol/L (136-145)
[2024-07-28] MEDS: Isosorbide Mononitrate 30 MG ER.TAB PO SCH (08:42)
[2024-07-28] MEDS: Metoprolol Tartrate 25 MG TAB PO SCH (08:42)
[2024-07-28] MEDS: Magnesium Oxide 400 MG TAB PO SCH (08:43)
[2024-07-28] MEDS: Methocarbamol 500 MG TAB PO SCH ×2 (12:08→16:19)
[2024-07-28] MEDS: Diclofenac 1% 50 GM TOPICAL GEL TP SCH ×2 (12:28→20:17)
[2024-07-28] MEDS: Fluticasone Propionate Nasal Spray 16 gm Bottle NASAL SCH (17:58)
[2024-07-28] MEDS: Ondansetron ODT 4 MG TAB PO PRN (18:27)
[2024-07-29 06:03] LABS: Anion Gap 16 mmol/L (10-20); BUN (Urea Nitrogen) 16 mg/dL (9.8-20.1); Calc. Creatinine Clearance 90 mL/min (70-130); Calcium 8.6 mg/dL (7.8-10.44); Carbon Dioxide 21 mmol/L (23-31); Chloride 105 mmol/L (98-107); Estimated GFR 96; Glucose 69 mg/dL (80-115); Potassium 4.2 mmol/L (3.5-5.1); Sodium 138 mmol/L (136-145)
[2024-07-29 06:50] LABS: #Basophils 0.04 10x3/uL (0.0-0.2); %Basophils 0.7 % (0.0-1.0); %Eosinophils 3.6 % (0.0-10.0); %Lymphocytes 30.8 % (21.0-51.0); %Monocytes 11.9 % (0.0-10.0); %Neutrophils 52.5 % (42.0-75.0); Hematocrit 40.1 % (36.0-47.0); Hemoglobin 13.2 g/dL (12.0-16.0); Mean Corpuscular HGB CONC 32.9 g/dL (32.0-36.0); Mean Corpuscular Hemoglobin 38.2 pg (27.0-31.0); Mean Corpuscular Volume 115.9 fL (78.0-98.0); Platelet Count 226 10x3/uL (130-400); RBC Distribution Width 13.9 % (11.5-14.5); Red Blood Cell (RBC) Count 3.46 mill/uL (4.20-5.40)
[2024-07-29] MEDS ORDERED: Fluticasone Propionate Nasal Spray 16 gm Bottle NASAL SCH (09:00)
[2024-07-29] MEDS: Promethazine 25 MG TAB PO SCH (11:50)
[2024-07-29] MEDS: Lidocaine 10 ML, Aluminum & Magnesium Hydroxide 30 ML SSW SCH (11:51)
[2024-07-29 12:08] VITALS: TEMP 97.9
[2024-07-29 13:38] VITALS: BP 100/50
[2024-07-30] MEDS ORDERED: Pantoprazole DR 40 MG TAB PO SCH (09:00)
[2024-07-30] MEDS ORDERED: Amiodarone 200 MG TAB PO SCH (09:00)
== END 2024-07-29 14:29 | disposition home or self-care (01) | DRG 309 ==
LOC: ERS 19:35 → OBS 23:04 → OBSVTOIN 07-29 12:33
PROVIDERS: ADMIT Student in an Organized Health Care Education/Training Program; ATTEND Internal Medicine
DX: I49.3 Ventricular premature depolarization (principal); I50.22 Chronic systolic (congestive) heart failure; I11.0 Hypertensive heart disease with heart failure; I25.10 Atherosclerotic heart disease of native coronary artery without angina pectoris; G47.00 Insomnia, unspecified; F41.9 Anxiety disorder, unspecified; I48.0 Paroxysmal atrial fibrillation; Z95.5 Presence of coronary angioplasty implant and graft; Z98.890 Other specified postprocedural states; Z88.8 Allergy status to other drugs, medicaments and biological substances; Z82.49 Family history of ischemic heart disease and other diseases of the circulatory system; Z90.710 Acquired absence of both cervix and uterus; Z95.1 Presence of aortocoronary bypass graft; Z90.49 Acquired absence of other specified parts of digestive tract
CPT/HCPCS: 36415; 71045; 80048; 80053; 83690; 83880; 84484; 85025; 93005; 96374; 96375; G0378; J2272; J3490; Q0162; Q0169

== ENCOUNTER 2024-10-26 12:09 | Inpatient (IN) | payer MEDICARE, OTHER ==
[~2024-10-26 12:09] MED LIST: Iopamidol-370 76% 500 ML MDV (1 ML CHARGE) ONE
[2024-10-26 12:47] LABS: #Basophils 0.07 10x3/uL (0.0-0.2); %Basophils 0.7 % (0.0-1.0); %Eosinophils 1.3 % (0.0-10.0); %Lymphocytes 26.7 % (21.0-51.0); %Monocytes 8.5 % (0.0-10.0); %Neutrophils 62.2 % (42.0-75.0); Hematocrit 35.4 % (36.0-47.0); Hemoglobin 11.9 g/dL (12.0-16.0); Mean Corpuscular HGB CONC 33.6 g/dL (32.0-36.0); Mean Corpuscular Hemoglobin 37.5 pg (27.0-31.0); Mean Corpuscular Volume 111.7 fL (78.0-98.0); Mean Platelet Volume 9.7 fL (7.4-10.4); Platelet Count 185 10x3/uL (130-400); RBC Distribution Width 13.2 % (11.5-14.5); Red Blood Cell (RBC) Count 3.17 mill/uL (4.20-5.40)
[2024-10-26 13:04] LABS: ALT (SGPT) 22 U/L (Less than 34); AST (SGOT) 27 U/L (11-34); Albumin 3.5 g/dL (3.1-4.5); Alkaline Phosphatase 42 U/L (40-110); Anion Gap 11 mmol/L (10-20); BUN (Urea Nitrogen) 17 mg/dL (9.8-20.1); Bilirubin, Total 0.3 mg/dL (0.3-1.2); Calc. Creatinine Clearance 0 mL/min (70-130); Calcium 8.7 mg/dL (7.8-10.44); Carbon Dioxide 22 mmol/L (23-31); Chloride 108 mmol/L (98-107); Estimated GFR 97; Globulin 3.2 g/dL (2.4-3.5); Glucose 80 mg/dL (80-115); Lipase 7 U/L (8-78); Potassium 4.4 mmol/L (3.5-5.1); Protein, Total 6.7 g/dL (5.8-8.1); Sodium 137 mmol/L (136-145)
[2024-10-26 13:09] LABS: Troponin I Less than 0.010 ng/mL (< 0.028)
[2024-10-26 13:10] LABS: Anisocytosis SLIGHT = 6-15 cells HPF (0-5); Macrocytosis SLIGHT = 6-15 cells HPF (0-5); Platelet Adequacy Comment Platelets Normal; Polychromasia SLIGHT = 2-3 cells HPF (0-2); Stomatocytes SLIGHT = 2-5 cells HPF (0-1)
[2024-10-26 14:54] LABS: Bilirubin Unable to Interpret (Negative); Blood, Urine Unable to Interpret (Negative); Clarity Hazy (Clear); Glucose, Urine (Dipstick) Unable to Interpret mg/dL (Negative); Ketone, Urine Unable to Interpret mg/dL (Negative); Leukocyte Unable to Interpret Leu/uL (Negative); Nitrite Unable to Interpret (Negative); Protein, Urine (Dipstick) Unable to Interpret mg/dL (Neg-Trace); Specific Gravity, Urine 1.014 (1.002-1.036); Urobilinogen UNABLE TO INTERPRET mg/dL (Less than 2); pH, Urine 5.3 (5.0-9.0)
[2024-10-26 14:58] LABS: Bacteria/HPF Rare-Few HPF (None Seen); CAUTI Indications for Culture Dysuria,urgency,freq; RBC/HPF 0-3 HPF (0-3); WBC/HPF 0-3 HPF (0-3)
[2024-10-26 14:59] LABS: Urine Culture Reflex No No
[2024-10-26] MEDS ORDERED: fentaNYL 50 mcg/mL 1 mL Vial ONE (15:36)
[2024-10-26] MEDS ORDERED: Ondansetron PF 4 MG/2 ML Vial ONE (15:36)
[2024-10-26] MEDS ORDERED: Nitroglycerin 2% Ointment 1 INCH/1 GM Packet ONE ×2 (16:33→16:36)
[2024-10-26 21:09] LABS: #Basophils 0.05 10x3/uL (0.0-0.2); %Basophils 0.7 % (0.0-1.0); %Lymphocytes 37.6 % (21.0-51.0); %Monocytes 8.7 % (0.0-10.0); %Neutrophils 50.5 % (42.0-75.0); Hematocrit 37.8 % (36.0-47.0); Hemoglobin 12.4 g/dL (12.0-16.0); Mean Corpuscular HGB CONC 32.8 g/dL (32.0-36.0); Mean Corpuscular Hemoglobin 37.3 pg (27.0-31.0); Mean Corpuscular Volume 113.9 fL (78.0-98.0); Mean Platelet Volume 9.9 fL (7.4-10.4); Platelet Count 194 10x3/uL (130-400); RBC Distribution Width 13.2 % (11.5-14.5); Red Blood Cell (RBC) Count 3.32 mill/uL (4.20-5.40)
[2024-10-26] MEDS ORDERED: Zolpidem Tartrate 5 MG TAB ONE (21:28)
[2024-10-26] MEDS: Zolpidem Tartrate 5 MG TAB PO SCH (21:30)
[2024-10-26 21:37] LABS: Anion Gap 11 mmol/L (10-20); BUN (Urea Nitrogen) 13 mg/dL (9.8-20.1); Calc. Creatinine Clearance 105 mL/min (70-130); Calcium 8.6 mg/dL (7.8-10.44); Carbon Dioxide 22 mmol/L (23-31); Chloride 109 mmol/L (98-107); Estimated GFR 99; Glucose 80 mg/dL (80-115); Potassium 4.3 mmol/L (3.5-5.1); Sodium 138 mmol/L (136-145)
[2024-10-26 21:42] LABS: Troponin I 0.012 ng/mL (< 0.028)
[2024-10-27] MEDS ORDERED: HYDROcodone/Acetaminophen 5/325 mg Tablet ONE (03:33)
[2024-10-27] MEDS: HYDROcodone/Acetaminophen 5/325 mg Tablet PO SCH (03:40)
[2024-10-27 06:57] LABS: Cardiac Risk 3.1 (Less than 4.5)
[2024-10-27 07:00] LABS: Troponin I Less than 0.010 ng/mL (< 0.028)
[2024-10-27] MEDS ORDERED: HYDROcodone/Acetaminophen 7.5/325 mg Tablet PO PRN (09:05)
[2024-10-27] MEDS ORDERED: Pantoprazole 40 MG DR.TAB ONE (09:34)
[2024-10-27] MEDS ORDERED: Aspirin 325 mg Enteric Coated Tablet ONE (09:35)
[2024-10-27] MEDS ORDERED: Enoxaparin 40 MG (0.4 mL) SYRINGE ONE (09:35)
[2024-10-27] MEDS ORDERED: Morphine 2 MG/ML VIAL ONE ×2 (09:37→12:28)
[2024-10-27] MEDS ORDERED: Non-Formulary Item 1 EACH (Lidocaine 5% Patch [Lidoderm 5% Patch] 1 PATCH Patch) TD PRN (10:09)
[2024-10-27] MEDS ORDERED: HYDROcodone/Acetaminophen 5/325 mg Tablet PO PRN (10:09)
[2024-10-27] MEDS: Morphine 4 MG/ML VIAL SLOW IVP PRN (10:20)
[2024-10-27] MEDS: Enoxaparin 40 MG (0.4 mL) SYRINGE SC SCH (10:20)
[2024-10-27] MEDS ORDERED: Lidocaine 4% Patch TD PRN (10:25)
[2024-10-27] MEDS: Pantoprazole 40 MG DR.TAB PO SCH ×2 (11:07→20:27)
[2024-10-27] MEDS: Aspirin 325 mg Enteric Coated Tablet PO SCH (11:07)
[2024-10-27] MEDS ORDERED: cefTRIAXone (ROCEPHIN) 1 GM VIAL ONE (12:38)
[2024-10-27] MEDS: cefTRIAXone\\ROCEPHIN 1 GM in Sodium Chloride 0.9% 100 ML IVPB SCH (12:48)
[2024-10-27] MEDS ORDERED: Cefepime 2 GM in Sodium Chloride 0.9% 100 ML IVPB SCH (15:00)
[2024-10-27] MEDS: HYDROcodone/Acetaminophen 5/325 mg Tablet PO PRN (15:43)
[2024-10-27 16:43] VITALS: BMI 31.3
[2024-10-27] MEDS: TRIMETHOPRIM IVPB SCH (16:53)
[2024-10-27] MEDS: DEXTROSE 5% IVPB SCH (16:53)
[2024-10-27] MEDS: WATER IVPB SCH (16:53)
[2024-10-27] MEDS: SULFAMETHOXAZOLE IVPB SCH (16:53)
[2024-10-27 17:50] LABS: Bacteria/HPF None Seen HPF (None Seen); Bilirubin Negative (Negative); Blood, Urine Negative (Negative); Clarity Clear (Clear); Glucose, Urine (Dipstick) Normal (Negative); Ketone, Urine Negative (Negative); Leukocyte Negative Leu/uL (Negative); Nitrite Negative (Negative); Protein, Urine (Dipstick) Negative (Neg-Trace); RBC/HPF 0-3 HPF (0-3); Specific Gravity, Urine 1.021 (1.002-1.036); Squamous Epithelial 0-3 HPF (0-3); Urobilinogen Normal mg/dL (Less than 2); WBC/HPF 0-3 HPF (0-3); pH, Urine 5.5 (5.0-9.0)
[2024-10-27] MEDS: Nitroglycerin 0.4 MG TAB (25 Tab Bottle) SL PRN (20:23)
[2024-10-27] MEDS: Ranolazine ER 500 MG TAB PO SCH (20:26)
[2024-10-27] MEDS: Sacubitril 24MG/Valsartan 26 MG TAB PO SCH (20:26)
[2024-10-27] MEDS: Amiodarone 200 MG TAB PO SCH (20:26)
[2024-10-27] MEDS: Sertraline 100 MG TAB PO SCH (20:26)
[2024-10-27] MEDS: Zolpidem Tartrate 5 MG TAB PO SCH (20:26)
[2024-10-27] MEDS ORDERED: Metoprolol Tartrate 25 MG TAB PO SCH (21:00)
[2024-10-27] MEDS: Transdermal Patch Removal TOP SCH (21:59)
[2024-10-27] MEDS: Promethazine HCl 12.5 MG in Sodium Chloride 0.9% 50 ML IVPB SCH (22:12)
[2024-10-28 05:38] LABS: #Basophils 0.05 10x3/uL (0.0-0.2); %Basophils 0.7 % (0.0-1.0); %Eosinophils 2.2 % (0.0-10.0); %Lymphocytes 32.5 % (21.0-51.0); %Monocytes 10.1 % (0.0-10.0); %Neutrophils 53.9 % (42.0-75.0); Hematocrit 34.9 % (36.0-47.0); Hemoglobin 11.8 g/dL (12.0-16.0); Mean Corpuscular HGB CONC 33.8 g/dL (32.0-36.0); Mean Corpuscular Volume 109.4 fL (78.0-98.0); Mean Platelet Volume 10.7 fL (7.4-10.4); Platelet Count 172 10x3/uL (130-400); Red Blood Cell (RBC) Count 3.19 mill/uL (4.20-5.40)
[2024-10-28 06:05] LABS: Anion Gap 13 mmol/L (10-20); BUN (Urea Nitrogen) 8 mg/dL (9.8-20.1); Calc. Creatinine Clearance 95 mL/min (70-130); Calcium 8.4 mg/dL (7.8-10.44); Carbon Dioxide 24 mmol/L (23-31); Chloride 110 mmol/L (98-107); Estimated GFR 96; Glucose 88 mg/dL (80-115); Sodium 143 mmol/L (136-145)
[2024-10-28] MEDS: Ondansetron PF 4 MG/2 ML Vial IVP PRN (07:23)
[2024-10-28] MEDS ORDERED: Pantoprazole 40 MG GRANULES PACKET PO SCH (09:00)
[2024-10-28] MEDS: Isosorbide Mononitrate 30 MG ER.TAB PO SCH (09:07)
[2024-10-28] MEDS ORDERED: Regadenoson 0.4 MG/5 ML SYRINGE ONE (09:40)
[2024-10-28] MEDS: Promethazine 25 MG TAB PO PRN (23:44)
[2024-10-29 00:26] VITALS: TEMP 97.8
[2024-10-29 12:44] VITALS: BP 136/61
== END 2024-10-29 13:42 | disposition home or self-care (01) | DRG 313 ==
LOC: ERS 12:09 → ERHOLD 18:47 → OBS 10-27 14:46 → OBSVTOIN 10-28 11:29
PROVIDERS: ADMIT Hospitalist; ATTEND Internal Medicine
DX: R07.9 Chest pain, unspecified (principal); I50.32 Chronic diastolic (congestive) heart failure; I11.0 Hypertensive heart disease with heart failure; K20.90 Esophagitis, unspecified without bleeding; R00.1 Bradycardia, unspecified; R10.9 Unspecified abdominal pain; I25.10 Atherosclerotic heart disease of native coronary artery without angina pectoris; Z88.1 Allergy status to other antibiotic agents; Z88.2 Allergy status to sulfonamides; Z88.8 Allergy status to other drugs, medicaments and biological substances; I48.91 Unspecified atrial fibrillation; J45.909 Unspecified asthma, uncomplicated; M54.50 Low back pain, unspecified; G89.29 Other chronic pain; F41.9 Anxiety disorder, unspecified; Z98.890 Other specified postprocedural states; Z90.710 Acquired absence of both cervix and uterus; Z90.89 Acquired absence of other organs
CPT/HCPCS: 36415; 71045; 71275; 74177; 76770; 78452; 80048; 80053; 80061; 81001; 83690; 83880; 84484; 85025; 87086; 93005; 93017; 93306; 94760; 96374; 96375; A9502; G0378; J0696; J1650; J2270; J2272; J2405; J2550; J2785; J3010; J3490; J7070; Q0169; Q9967